=== PATIENT | female | born 1935 | race Caucasian/White ===

== ENCOUNTER 2021-01-29 18:27 | Inpatient (IN) | payer MEDICARE, OTHER ==
[~2021-01-29] VITALS: Ht 162.6 cm; Wt 74.0 kg
--- NOTE | 2021-01-29 18:50 | NUR ---
BIBRA 78 C/O R HIP PAIN S/P GLF WHILE WALKING HER DOG. PT AAOX4, VSS. RR EVEN & UNLABORED. DENIES CP, SOB, DIZZINESS, N/V AT THIS TIME. PT SEEN & EVAL'D BY DR. BANSAL. WILL CONT TO MONITOR.
[2021-01-29] MEDS ORDERED: MORPHINE SULFATE INJ 2 MG/ML DISP.SYRIN ONE (18:58)
[2021-01-29] MEDS ORDERED: ONDANSETRON HCL/PF 4 MG/2 ML VIAL ONE (18:58)
[2021-01-29] MEDS ORDERED: ONDANSETRON HCL/PF 4 MG/2 ML VIAL IVP ONE (19:00)
[2021-01-29] MEDS ORDERED: MORPHINE SULFATE INJ 2 MG/ML DISP.SYRIN IV ONE ×2 (19:00→20:30)
--- NOTE | 2021-01-29 19:02 | NUR ---
MEDICATED PER ERMD ORDER, PT CAROLINA WELL. WILL CONT TO MONITOR.
--- NOTE | 2021-01-29 19:08 | NUR ---
XRAY AT BEDSIDE
[2021-01-29 19:35] LABS: CALCIUM, SERUM 11.1 mg/dL (8.5-10.1); CARBON DIOXIDE 24 mmol/L (21-32); CHLORIDE 109 mmol/L (98-107); CREATININE 1.6 mg/dL (0.6-1.3); GLUCOSE 104 mg/dL (74-106); SODIUM SERUM 143 mmol/L (136-145); UREA NITROGEN, BLOOD 47 mg/dL (7-18)
[2021-01-29 19:52] LABS: BASOPHILS # (AUTO) 0.1 K/uL (0.0-0.2); BASOPHILS % (AUTO) 0.7 % (0.0-2.0); EOSINOPHILS % (AUTO) 1.7 % (0.0-6.0); HEMATOCRIT 41 % (33-45); HEMOGLOBIN 13.4 g/dL (11.5-14.8); LYMPHOCYTES # (AUTO) 2.2 K/uL (0.8-4.8); LYMPHOCYTES % (AUTO) 25.1 % (20.0-44.0); MEAN CORPUSCULAR HGB CONC 33 g/dl (31.0-36.0); MEAN CORPUSCULAR VOLUME 92 fL (82-100); MONOCYTES # (AUTO) 0.7 K/uL (0.1-1.30); MONOCYTES % (AUTO) 7.9 % (2.0-12.0); NEUTROPHILS # (AUTO) 5.7 K/uL (1.8-8.9); NEUTROPHILS % (AUTO) 64.6 % (43.0-81.0); PLATELET COUNT (AUTO) 182 K/uL (150-450); RED BLOOD CELL COUNT(AUTO) 4.44 MIL/uL (4.0-5.2); WHITE BLOOD COUNT (AUTO) 8.9 K/uL (4.3-11.0)
[2021-01-29] MEDS ORDERED: MORPHINE SULFATE INJ 4 MG/ML DISP.SYRIN ONE (20:06)
--- NOTE | 2021-01-29 20:15 | NUR ---
COVID SWAB SENT
[2021-01-29] MEDS ORDERED: IV D5W 1,000 ML IV PRN (20:30)
[2021-01-29] MEDS ORDERED: ONDANSETRON HCL/PF 4 MG/2 ML VIAL IVP PRN (20:30)
[2021-01-29] MEDS ORDERED: ZOLPIDEM TARTRATE 5 MG TABLET PO PRN (20:30)
[2021-01-29] MEDS ORDERED: MAGNESIUM HYDROXIDE 30 ML UDC PO PRN (20:30)
[2021-01-29] MEDS ORDERED: MAG HYDROX/AL HYDROX/SIMETH 30 ML UDC PO PRN (20:30)
[2021-01-29] MEDS ORDERED: Z GUARD REMEDY 2 OZ OINT TP PRN (20:30)
--- NOTE | 2021-01-29 21:30 | NUR ---
PT PLACED ON 2L O2 VIA NC FOR COMFORT
--- NOTE | 2021-01-29 23:41 | NUR ---
ms 308-1
--- NOTE | 2021-01-29 23:51 | NUR ---
GAVE REPORT TO SANDHYA FALK FOR ROSETTA
--- NOTE | 2021-01-30 00:01 | NUR ---
MS RN ADMITTING NOTES RECEIVED PATIENT VIA IGOR, VIRGIL, A&O X 4. IN NO ACUTE DISTRESS NOTED. TRANSFERRED TO BED SAFELY. VS TAKEN AND RECORDED FOLLOWS: TEMP 97.8, WY 86, RR 18, BP 139/62. WITH O2 VIA NC AT 2LPM SATURATING WELL AT 95%. WITH COMPLAINTS OF RIGHT HIP PAIN WITH PAIN SCALE OF 4/10. NOTED WITH REDNESS ON BLE, PICTURE TAKEN AND FILED IN CHART. SAFETY PRECAUTIONS OBSERVED: BED ON LOWEST LOCKED POSITION, SIDE RAILS UP X 2, CALL LIGHT WITHIN EASY REACH. INSTRUCTED TO USE CALL LIGHT WHEN ASSISTANCE IS NEEDED. INSTRUCTED ON NOTHING BY MOUTH AT THIS TIME. PATIENT VERBALIZED UNDERSTANDING. WILL CONTINUE TO MONITOR PATIENT'S CURRENT STATUS.
[2021-01-30 00:10] VITALS: BP 139/62
[2021-01-30 00:15] VITALS: BP 139/62
[2021-01-30] MEDS: MORPHINE SULFATE INJ 2 MG/ML DISP.SYRIN IV PRN ×3 (05:43→23:28)
--- NOTE | 2021-01-30 05:43 | NUR ---
RN NOTES PATIENT HAS C/O RIGHT HIP PAIN WITH PAIN SCALE OF 9/10. DUE MORPHINE GIVEN ORDERED. WILL CONTINUE TO MONITOR PATIENT'S PAIN STATUS.
[2021-01-30 05:50] LABS: BASOPHILS % (AUTO) 0.4 % (0.0-2.0); EOSINOPHILS % (AUTO) 1.5 % (0.0-6.0); HEMATOCRIT 38 % (33-45); HEMOGLOBIN 12.2 g/dL (11.5-14.8); LYMPHOCYTES # (AUTO) 1.9 K/uL (0.8-4.8); LYMPHOCYTES % (AUTO) 22.3 % (20.0-44.0); MEAN CORPUSCULAR HGB CONC 33 g/dl (31.0-36.0); MEAN CORPUSCULAR VOLUME 94 fL (82-100); MONOCYTES # (AUTO) 0.9 K/uL (0.1-1.30); NEUTROPHILS # (AUTO) 5.6 K/uL (1.8-8.9); NEUTROPHILS % (AUTO) 65.8 % (43.0-81.0); PLATELET COUNT (AUTO) 129 K/uL (150-450); RED BLOOD CELL COUNT(AUTO) 4.02 MIL/uL (4.0-5.2); WHITE BLOOD COUNT (AUTO) 8.5 K/uL (4.3-11.0)
--- NOTE | 2021-01-30 06:46 | NUR ---
MS RN CLOSING NOTES PATIENT IN BED, AWAKE, A&O X4, WITH O2 VIA NC AT 2LPM SATURATING WELL AT96%. ONGOING SHITAL OF D5 WATER 1LX 75CC/HR INFUSING WELL OVER PATIENT'S RIGHT WRIST, NO REDNESS, NO S/SX OF INFILTRATION NOTED. VS WNL. WITH FC CONNECTED TO URINE BAG DRAINING CLEAR YELLOW COLORED URINE. COMPLAINTS OF TOLERABLE PAIN ON RIGHT HIP WITH PAIN SCALE OF 3/10. REINFORCED NPO. SAFETY PRECAUTIONS OBSERVED AND MAINTAINED DURING THE SHIFT: BED ON LOWEST LOCKED POSITION, KEPT SIDE RAILS UPX2 AT ALL TIMES, KEPT CALL LIGHT WITHIN EASY REACH. WILL ENDORSE TO AM SHIFT NURSE FOR ROSETTA.
--- NOTE | 2021-01-30 07:14 | NUR ---
MS RN OPENING NOTES PATIENT IN BED, AWAKE, A&O X4, NO C/O PAIN OR DISTRESS. WITH O2 VIA NC 2LPM SATURATING 96%, NO SOB NOTED. JAN PICC LINE, INTACT, PATENT AND FLUSHES WELL. NO REDNESS NOTED. VS WNL WITH BLE DRESSING DRY AND INTACT. WOUND VACC ON R LOWER LEG AT 125 MMHG DRAINING SEROSANGUINEOUS SECRETIONS. NO COMPLAINTS OF NAUSEA/VOMITING AT THIS TIME. SAFETY PRECAUTIONS OBSERVED AND MAINTAINED DURING THE SHIFT: BED ON LOWEST LOCKED POSITION, KEPT SIDE RAILS UPX2 AT ALL TIMES, KEPT CALL LIGHT WITHIN EASY REACH AND ANSWERED PROMPTLY
[2021-01-30 07:48] LABS: THYROID STIMULATING HORMONE 1.717 uIU/mL (0.358-3.74)
[2021-01-30] MEDS ORDERED: METO25TA4 PO (07:56)
[2021-01-30] MEDS ORDERED: ATOR10TA PO (07:56)
[2021-01-30] MEDS ORDERED: CHOL100062 PO (07:56)
[2021-01-30] MEDS ORDERED: VITA-354 PO (07:56)
[2021-01-30] MEDS ORDERED: MULT-447 PO (07:56)
[2021-01-30] MEDS ORDERED: OMEG1CAP PO (07:56)
[2021-01-30] MEDS ORDERED: THIA100T70 PO (07:56)
[2021-01-30] MEDS ORDERED: VALS1TAB7 PO (07:56)
[2021-01-30 08:03] LABS: CALCIUM, SERUM 10.5 mg/dL (8.5-10.1); CREATININE 1.3 mg/dL (0.6-1.3); MAGNESIUM 1.6 mg/dL (1.8-2.4); PHOSPHORUS 2.9 mg/dL (2.5-4.9); POTASSIUM 4.4 mmol/L (3.5-5.1)
[2021-01-30] MEDS ORDERED: PANTOPRAZOLE 40 MG VIAL IV SCH (09:00)
[2021-01-30] MEDS ORDERED: HYDROCHLOROTHIAZIDE 25 MG TABLET PO SCH (09:00)
[2021-01-30] MEDS ORDERED: Medication Not On Formulary EA (Omega-3 Fatty Acids/Fish Oil (Fish Oil 1,000 Mg Capsule) PO SCH (09:00)
[2021-01-30] MEDS ORDERED: Magnesium 1GM/D5W 100ML PREMIX PIGGYBACK IV ONE (09:30)
[2021-01-30] MEDS: THIAMINE HCL 100 MG TABLET PO SCH (09:32)
[2021-01-30] MEDS: ATORVASTATIN 10 MG TABLET PO SCH (09:32)
[2021-01-30] MEDS: CHOLECALCIFEROL 1,000 UNIT TABLET (VIT D3) PO SCH (09:33)
[2021-01-30] MEDS: METOPROLOL SUCCINATE 25 MG TAB.SR.24H PO SCH (09:34)
[2021-01-30] MEDS: VITAMIN E 400 UNIT CAPSULE PO SCH (09:34)
[2021-01-30] MEDS: MULTIVIT W/MINERALS 1 TAB TABLET PO SCH (09:34)
[2021-01-30] MEDS: VALSARTAN 80 MG TABLET PO SCH (09:35)
[2021-01-30] MEDS: ENOXAPARIN SODIUM 40 MG/0.4 ML DISP.SYRIN SQ SCH (10:24)
[2021-01-30] MEDS ORDERED: METOPROLOL TARTRATE 25 MG TABLET PO SCH (10:30)
[2021-01-30] MEDS: PANTOPRAZOLE 40 MG TABLET.DR PO SCH (11:02)
[2021-01-30 11:15] LABS: ALBUMIN 3.1 g/dL (3.4-5.0); BILIRUBIN,DIRECT 0.3 mg/dL (0.0-0.2); BILIRUBIN,TOTAL 1.1 mg/dL (0.2-1.0); TOTAL PROTEIN, SERUM 5.8 g/dL (6.4-8.2)
[2021-01-30] MEDS: ACETAMINOPHEN 325 MG TABLET PO PRN (14:10)
[2021-01-30] MEDS: HYDROCODONE/APAP 5/325MG TABLET PO PRN ×2 (14:38→19:16)
--- NOTE | 2021-01-30 18:58 | NUR ---
PT IN BED AOX4, BREATHING EVEN AND UNLABORED , NO C/O OF RESPIRATORY DISTRESS, R WRIST 20 G IV , INTACT PATENT AND FLUSHING , PT DUE FOR R HIP ORIF TOMORROW AT 4PM DONE BY DR BAEZA. PT WILL BE ON MIDNIGHT NPO FOR PROCEDURE TOMORROW. SAFETY PRECAUTIONS INPLEMENTED , BED LOWEST POSITION , S8DE RAILS UP TIMES 2 AND BED LOCKED. CALL LIGHT WITHIN REACH AND ANSWERED PROMPTLY.
--- NOTE | 2021-01-30 19:20 | NUR ---
MS RN OPENING NOTE: RECEIVED PATIENT AWAKE IN BED,A/OX4, OB BED REST, ASPIRATION PRECAUTION, ON STAPLETON CATH WITH 50CC URINE RETENTION CLEAR YELLOW, IV LINE AT R WRIST WITH D5W @75ML/HR INFUSING WELL,ON BED REST, NPO POST MIDNIGHT DUE TO SCHEDULE R HIP ORIF AT 1600 PATIENT KEPT CLEAN AND DRY, ALL NEEDS MET, WILL CONTINUE TO MONITOR.
[2021-01-30 20:00] VITALS: BP 90/62
[2021-01-30] MEDS: IV NS 0.9% 1,000 ML IV PRN (20:29)
[2021-01-31] VITALS (9 sets, daily range): BP systolic 90–119; BP diastolic 46–74
[2021-01-31] MEDS ORDERED: Potassium Chloride 20 MEQ in IV D5/0.45 NACL 1,000 ML IV PRN
[2021-01-31 05:59] LABS: BASOPHILS % (AUTO) 0.6 % (0.0-2.0); EOSINOPHILS % (AUTO) 2.3 % (0.0-6.0); HEMATOCRIT 38 % (33-45); HEMOGLOBIN 12.5 g/dL (11.5-14.8); LYMPHOCYTES # (AUTO) 1.3 K/uL (0.8-4.8); LYMPHOCYTES % (AUTO) 18.3 % (20.0-44.0); MEAN CORPUSCULAR HGB CONC 33 g/dl (31.0-36.0); MEAN CORPUSCULAR VOLUME 93 fL (82-100); MONOCYTES # (AUTO) 0.7 K/uL (0.1-1.30); MONOCYTES % (AUTO) 9.9 % (2.0-12.0); NEUTROPHILS % (AUTO) 68.9 % (43.0-81.0); PLATELET COUNT (AUTO) 122 K/uL (150-450); RED BLOOD CELL COUNT(AUTO) 4.12 MIL/uL (4.0-5.2); WHITE BLOOD COUNT (AUTO) 7.2 K/uL (4.3-11.0)
[2021-01-31] MEDS ORDERED: CEFAZOLIN 2 GM in IV D5W 100 ML IV ONE (06:30)
[2021-01-31 06:37] LABS: ALANINE AMINOTRANSFERASE 23 U/L (12-78); ALBUMIN 2.9 g/dL (3.4-5.0); ALKALINE PHOSPHATASE 58 U/L (46-116); ASPARTATE AMINOTRANSFERASE 17 U/L (15-37); BILIRUBIN,TOTAL 1.8 mg/dL (0.2-1.0); CALCIUM, SERUM 10.4 mg/dL (8.5-10.1); CARBON DIOXIDE 23 mmol/L (21-32); CHLORIDE 104 mmol/L (98-107); CREATININE 1.2 mg/dL (0.6-1.3); GLUCOSE 152 mg/dL (74-106); MAGNESIUM 1.6 mg/dL (1.8-2.4); PHOSPHORUS 2.7 mg/dL (2.5-4.9); POTASSIUM 4.5 mmol/L (3.5-5.1); SODIUM SERUM 136 mmol/L (136-145); TOTAL PROTEIN, SERUM 5.6 g/dL (6.4-8.2); UREA NITROGEN, BLOOD 27 mg/dL (7-18)
--- NOTE | 2021-01-31 06:54 | NUR ---
MS RN CLOSING NOTE: PATIENT SLEEP IN BED COMFORTABLY,AROUSABLE TO STIMULI, BED IN LOW POSITION, CALLLIGHTS WITHIN REACH, NO COMPLAIN OF PAIN AND DISCOMFORT AT THIS TIME, BED IN LOW POSITION, CALL LIGHTS WITHIN REACH PATIENT ON NPO WITH SHEDULE R HIP ORIF AT 1600 TODAY, WITH IV LINE AT R WRIST WITH POTASSIUM CHLORIDE 20 MEQ ON D5 1/2 NSS @100ML/HR INFUSING WELL, PATIENT KEPT CLEAN AND DRY, ALL NEEDS MET, ENDORSE TO INCOMING SHIFT.
--- NOTE | 2021-01-31 07:36 | NUR ---
MS RN OPENING NOTES RECEIVED PATIENT IN BED, AWAKE, A/O X4. PATIENT ON OXYGEN THERAPY AT 2 LPM FOR COMFORT PER PATIENT REQUEST. COMPLAINING OF MILD PAIN IN HER HIP. STAPLETON CATH IN PLACE DRAINING YELLOW URINE. R WRIST IV ACCESS G #[address] AND INTACT INFUSING POTASSIUM CHLORIDE 20 MEQ IN D5 1/2 NS 100 MLS/HR. SAFETY PRECAUTIONS IN PLACE; BED IN LOW POSITION AND LOCKED, RAILS UP X2, CALL LIGHT WITHIN REACH. WILL CONTINUE TO MONITOR PATIENT.
[2021-01-31] MEDS ORDERED: Magnesium 1GM/D5W 100ML PREMIX PIGGYBACK IV ONE (08:00)
[2021-01-31] MEDS ORDERED: LORAZEPAM INJ 2 MG/ML VIAL IV PRN (08:00)
[2021-01-31] MEDS: MORPHINE SULFATE INJ 2 MG/ML DISP.SYRIN IV PRN ×2 (08:03→12:45)
--- NOTE | 2021-01-31 08:08 | NUR ---
MS RN NOTES PATIENT COMPLAINING OF HIP PAIN 8 OUT OF 10 REQUESTING PAIN MEDICATION. PRN MORPHINE 4 MG ADMINISTERED PER MD ORDER. WILL REASSESS.
[2021-01-31] MEDS: VITAMIN E 400 UNIT CAPSULE PO SCH (08:10)
[2021-01-31] MEDS: CHOLECALCIFEROL 1,000 UNIT TABLET (VIT D3) PO SCH (08:10)
[2021-01-31] MEDS: MULTIVIT W/MINERALS 1 TAB TABLET PO SCH (08:10)
[2021-01-31] MEDS: METOPROLOL SUCCINATE 25 MG TAB.SR.24H PO SCH (08:10)
[2021-01-31] MEDS: VALSARTAN 80 MG TABLET PO SCH (08:10)
[2021-01-31] MEDS: THIAMINE HCL 100 MG TABLET PO SCH (08:10)
[2021-01-31] MEDS: PANTOPRAZOLE 40 MG TABLET.DR PO SCH (08:10)
[2021-01-31] MEDS: ATORVASTATIN 10 MG TABLET PO SCH (08:10)
[2021-01-31] MEDS: ENOXAPARIN SODIUM 40 MG/0.4 ML DISP.SYRIN SQ SCH (09:17)
[2021-01-31] MEDS ORDERED: ANESTHESIA TRAY IN PYXIS 1 EA TRAY MC ONE (12:08)
[2021-01-31] MEDS ORDERED: BUPIVACAINE 0.5 % PF 150 MG/30 ML VIAL ONE (12:09)
--- NOTE | 2021-01-31 12:49 | NUR ---
MS RN NOTES PATIENT COMPLAINING OF HIP PAIN 9 OUT OF 10 REQUESTING PAIN MEDICATION. PRN MORPHINE 4 MG ADMINISTERED PER MD ORDER. WILL REASSESS.
[2021-01-31] MEDS: IV NS 0.9% 1,000 ML IV PRN ×2 (13:21→20:47)
--- NOTE | 2021-01-31 15:46 | NUR ---
MS RN NOTES PATIENT TAKEN TO SURGERY.
[2021-01-31] MEDS ORDERED: MIDAZOLAM HCL 2 MG/2ML VIAL ONE (15:47)
[2021-01-31] MEDS ORDERED: FENTANYL PF 250MCG/5ML AMPUL ONE (15:47)
[2021-01-31] MEDS ORDERED: VANCOMYCIN 1 GM VIAL ONE (15:55)
[2021-01-31] MEDS ORDERED: TRANEXAMIC ACID 1,000 MG in SODIUM CHLORIDE IRRIG SOLUTION 90 ML IR ONE (17:00)
[2021-01-31] MEDS ORDERED: VANCOMYCIN 1 GM in IV NS 0.9% 250 ML IV ONE (17:00)
[2021-01-31] MEDS ORDERED: BUPIVACAINE MPF 0.5% W/EPI INJ 30 ML VIAL ONE (17:01)
[2021-01-31] MEDS ORDERED: BUPIVACAINE MPF W/EPI 0.25% 30 ML VIAL ONE (17:01)
[2021-01-31] MEDS ORDERED: HYDROMORPHONE INJ 2 MG/ML DISP.SYRIN ONE (18:47)
--- NOTE | 2021-01-31 19:30 | NUR ---
MS RN OPENING NOTE RECEIVED PT IN BED WITH EYES CLOSED, EASILY AROUSED. A/O X4. S/P RIGHT HIP SURGERY. PT ON 2L O2 VIA NC. NO SOB OR S/S OF RESPIRATORY DISTRESS NOTED. PT C/O ACHING AND BURNING PAIN IN RIGHT HIP, RATED 8/10 ON 0-10 PAIN SCALE. WILL ADMINISTER PAIN MEDICATION. STAPLETON CATH IN PLACE DRAINING CLEAR YELLOW URINE. IV ACCESS IN RIGHT WRIST #20, INTACT AND PATENT. SAFETY MEASURES MAINTAINED. BED IN LOWEST LOCKED POSITION, HOB ELEVATED, SIDE RAILS UP X2. CALL LIGHT AND TABLE WITHIN REACH. WILL CONTINUE WITH PLAN OF CARE.
[2021-01-31] MEDS: TRAMADOL HCL 50 MG TABLET PO SCH (20:34)
[2021-02-01] MEDS: CEFAZOLIN 2 GM in IV D5W 100 ML IV SCH ×3 (00:16→16:40)
[2021-02-01] MEDS: TRAMADOL HCL 50 MG TABLET PO SCH ×3 (02:37→14:00)
[2021-02-01 02:45] VITALS: BP 123/69
[2021-02-01] MEDS: MORPHINE SULFATE INJ 2 MG/ML DISP.SYRIN IV PRN ×2 (04:59→18:26)
--- NOTE | 2021-02-01 04:59 | NUR ---
RN PAIN PT C/O SHARP PAIN IN THE RIGHT HIP, RATED 8/10 ON 0-10 PAIN SCALE. PT NOTED WITH FACIAL GRIMACING AND IRRITABILITY. VSS. PER PT REQUEST, ADMINISTERED MORPHINE SULFATE 4 MG IV Q4H PRN FOR PAIN. WILL CONTINUE TO MONITOR.
--- NOTE | 2021-02-01 05:30 | NUR ---
INCENTIVE SPIROMETER AT BEDSIDE. DEMONSTRATED USE EVERY 4 HOURS WHILE AWAKE AFTER SURGERY AND EDUCATED PT ON BENEFITS OF INCENTIVE SPIROMETER. PT VERBALIZED UNDERSTANDING.
[2021-02-01 06:31] LABS: BASOPHILS % (AUTO) 0.3 % (0.0-2.0); EOSINOPHILS % (AUTO) 0.1 % (0.0-6.0); HEMATOCRIT 34 % (33-45); HEMOGLOBIN 11.2 g/dL (11.5-14.8); LYMPHOCYTES # (AUTO) 0.5 K/uL (0.8-4.8); LYMPHOCYTES % (AUTO) 3.5 % (20.0-44.0); MEAN CORPUSCULAR HGB CONC 33 g/dl (31.0-36.0); MEAN CORPUSCULAR VOLUME 93 fL (82-100); MONOCYTES # (AUTO) 0.7 K/uL (0.1-1.30); MONOCYTES % (AUTO) 4.6 % (2.0-12.0); NEUTROPHILS # (AUTO) 13.6 K/uL (1.8-8.9); NEUTROPHILS % (AUTO) 91.5 % (43.0-81.0); PLATELET COUNT (AUTO) 118 K/uL (150-450); RED BLOOD CELL COUNT(AUTO) 3.71 MIL/uL (4.0-5.2); WHITE BLOOD COUNT (AUTO) 14.9 K/uL (4.3-11.0)
[2021-02-01 06:43] LABS: CALCIUM, SERUM 9.7 mg/dL (8.5-10.1); CARBON DIOXIDE 23 mmol/L (21-32); CHLORIDE 108 mmol/L (98-107); CREATININE 1.4 mg/dL (0.6-1.3); GLUCOSE 177 mg/dL (74-106); MAGNESIUM 1.5 mg/dL (1.8-2.4); POTASSIUM 4.7 mmol/L (3.5-5.1); SODIUM SERUM 138 mmol/L (136-145); UREA NITROGEN, BLOOD 27 mg/dL (7-18)
--- NOTE | 2021-02-01 07:00 | NUR ---
MS RN CLOSING NOTE PT IS AWAKE IN BED. A/O X4. PT ON 2L O2 VIA NC. NO SOB OR S/S OF RESPIRATORY DISTRESS NOTED. PT ON BEDREST. PT HAS NO C/O PAIN OR DISCOMFORT AT THIS TIME. STAPLETON CATH IN PLACE DRAINING CLEAR YELLOW URINE. IV ACCESS IS INTACT, PATENT, AND FLUSHING WELL. DRESSING NOTED ON RIGHT HIP, DRY AND NO BLEEDING NOTED. ALL NEEDS HAVE BEEN MET. PAIN MANAGEMENT ADMINISTERED PER ORDER. SAFETY PRECAUTIONS MAINTAINED AT ALL TIMES. BED IN LOWEST LOCKED POSITION, HOB ELEVATED, SIDE RAILS UP X2. CALL LIGHT AND TABLE WITHIN REACH. WILL ENDORSE TO ONCOMING NURSE FOR ROSETTA.
[2021-02-01 08:00] VITALS: BP 115/56
[2021-02-01] MEDS: Magnesium 1GM/D5W 100ML PREMIX 100 ML IV SCH ×3 (08:30→11:09)
[2021-02-01] MEDS: METOPROLOL SUCCINATE 25 MG TAB.SR.24H PO SCH (09:00)
[2021-02-01] MEDS: MULTIVIT W/MINERALS 1 TAB TABLET PO SCH (09:15)
[2021-02-01] MEDS: VALSARTAN 80 MG TABLET PO SCH (09:16)
[2021-02-01] MEDS: ATORVASTATIN 10 MG TABLET PO SCH (09:16)
[2021-02-01] MEDS: THIAMINE HCL 100 MG TABLET PO SCH (09:16)
[2021-02-01] MEDS: PANTOPRAZOLE 40 MG TABLET.DR PO SCH (09:16)
[2021-02-01] MEDS: VITAMIN E 400 UNIT CAPSULE PO SCH (09:16)
[2021-02-01] MEDS: ENOXAPARIN SODIUM 30 MG/0.3 ML DISP.SYRIN SQ SCH (09:18)
--- NOTE | 2021-02-01 14:03 | NUR ---
PATIENT IS HAVING HALLUCINATIONS - DID NOT GIVE 1400 TRAMADOL
[2021-02-01] MEDS ORDERED: TRAMADOL HCL 50 MG TABLET PO PRN (14:30)
[2021-02-01 16:00] VITALS: BP 106/55
--- NOTE | 2021-02-01 18:00 | NUR ---
MS RN NOTE PATIENT REQUESTED TO NOT HAVE STAPLETON TAKEN OUT UNTIL TOMORROW AFTER PT. STATED SHE CANNOT WALK AND IS IN TOO MUCH PAIN TO GET OUT OF BED SO SHE WILL URINATE ON HERSELF. DAUGHTER IS ADAMANT ABOUT LEAVING IT IN WELL. I LET THEM KNOW THAT WE DO NOT WANT HER TO GET AN INFECTION AND THAT IT SHOULD BE TAKEN OUT DAY 1 POST OP. PATIENT STILL WANTS IT IN. MD AWARE. I LET PATIENT KNOW WE WILL WAIT UNTIL TOMORROW MORNING.
--- NOTE | 2021-02-01 18:36 | NUR ---
MS RN CLOSING NOTE PATIENT CURRENTLY LYING IN BED, AWAKE. A/O X4. STABLE ON ROOM AIR - NO SOB OR DISCOMFORT NOTED. COMPLAINING OF PAIN 05/15 - ADMINISTERED MORPHINE 4MG IV @ 1830. IV ACCESS TO RIGHT WRIST #20 - HEP LOCK. STAPLETON CATH IN PLACE DRAINING CLEAR YELLOW URINE TO GRAVITY. STAPLETON WAS SUPPOSED TO BE TAKEN OUT TODAY, PATIENT REQUESTED THAT IT BE LEFT IN BECAUSE SHE CANNOT WALK AND WILL URINATE ON HERSELF. MD AWARE. DRESSING CHANGED ON RIGHT HIP TO BORDER DRESSING - TO BE CHANGED PRN SOILING USING ASEPTIC TECHNIQUE. SAFETY PRECAUTIONS MAINTAINED. CALL LIGHT WITHIN REACH. WILL ENDORSE TO [place]ION COORDINATOR FOR ROSETTA.
[2021-02-01 20:00] VITALS: BP 104/42
--- NOTE | 2021-02-01 20:00 | NUR ---
MS RN OPENING NOTES Patient is A&Ox3, in no distress. Denies pain or discomfort. O2 sat was 89% on RA, reapplied NC on 2L and O2 went up to 93%, denies SOB. Mitchell patent and draining. All safety measures in place. Patient is calm and cooperative.
--- NOTE | 2021-02-02 05:04 | NUR ---
MS RN NOTES Patient is A&Ox3. VSS. O2 92-95% on O2 2L via NC. Denies pain at rest, states she is very comfortable and able to rest well throughout the night but easy to rouse. Upon repositioning patient does state pain about 6/10 but goes away once in new position. Precautions when repositioning d/t s/p hip replacement. No signs of distress
[2021-02-02 05:07] LABS: PTH, INTACT 92 pg/mL (15-65)
[2021-02-02] MEDS: HYDROCODONE/APAP 5/325MG TABLET PO PRN ×2 (06:11→21:35)
[2021-02-02 06:26] LABS: BASOPHILS % (AUTO) 0.3 % (0.0-2.0); EOSINOPHILS % (AUTO) 2.2 % (0.0-6.0); HEMATOCRIT 33 % (33-45); HEMOGLOBIN 10.7 g/dL (11.5-14.8); LYMPHOCYTES % (AUTO) 9.6 % (20.0-44.0); MEAN CORPUSCULAR HGB CONC 33 g/dl (31.0-36.0); MEAN CORPUSCULAR VOLUME 93 fL (82-100); MONOCYTES # (AUTO) 0.9 K/uL (0.1-1.30); MONOCYTES % (AUTO) 9.3 % (2.0-12.0); NEUTROPHILS # (AUTO) 7.8 K/uL (1.8-8.9); NEUTROPHILS % (AUTO) 78.6 % (43.0-81.0); PLATELET COUNT (AUTO) 108 K/uL (150-450)
[2021-02-02 06:36] LABS: CALCIUM, SERUM 10.3 mg/dL (8.5-10.1); CARBON DIOXIDE 24 mmol/L (21-32); CHLORIDE 104 mmol/L (98-107); CREATININE 1.4 mg/dL (0.6-1.3); GLUCOSE 149 mg/dL (74-106); MAGNESIUM 2.4 mg/dL (1.8-2.4); POTASSIUM 4.6 mmol/L (3.5-5.1); SODIUM SERUM 133 mmol/L (136-145); UREA NITROGEN, BLOOD 31 mg/dL (7-18)
--- NOTE | 2021-02-02 07:21 | NUR ---
MS RN OPENING NOTE PATIENT CURRENTLY LYING IN BED, AWAKE. A/O X4. STABLE ON ROOM AIR - NO SOB OR DISCOMFORT NOTED. IV ACCESS TO RIGHT WRIST #20 - HEP LOCK. STAPLETON CATH IN PLACE DRAINING CLEAR YELLOW URINE TO GRAVITY. STAPLETON WAS SUPPOSED TO BE TAKEN OUT TODAY, PATIENT REQUESTED THAT IT BE LEFT IN BECAUSE SHE CANNOT WALK AND WILL URINATE ON HERSELF. MD AWARE. DRESSING CHANGED ON RIGHT HIP TO BORDER DRESSING - TO BE CHANGED PRN SOILING USING ASEPTIC TECHNIQUE. SAFETY PRECAUTIONS MAINTAINED. CALL LIGHT WITHIN REACH AND ANSWERED PROMPTLY
[2021-02-02 08:00] VITALS: BP 100/54
[2021-02-02] MEDS: THIAMINE HCL 100 MG TABLET PO SCH (08:02)
[2021-02-02] MEDS: ATORVASTATIN 10 MG TABLET PO SCH (08:03)
[2021-02-02] MEDS: PANTOPRAZOLE 40 MG TABLET.DR PO SCH (08:03)
[2021-02-02] MEDS: VITAMIN E 400 UNIT CAPSULE PO SCH (08:03)
[2021-02-02] MEDS: MULTIVIT W/MINERALS 1 TAB TABLET PO SCH (08:03)
[2021-02-02 08:06] LABS: IMMUNOGLOBULIN A, SERUM 68 mg/dL (64-422); IMMUNOGLOBULIN G, SERUM 355 mg/dL (586-1602); IMMUNOGLOBULIN M, SERUM 25 mg/dL (26-217)
[2021-02-02] MEDS: ENOXAPARIN SODIUM 30 MG/0.3 ML DISP.SYRIN SQ SCH (08:06)
[2021-02-02] MEDS: METOPROLOL SUCCINATE 25 MG TAB.SR.24H PO SCH (08:10)
[2021-02-02] MEDS: MORPHINE SULFATE INJ 2 MG/ML DISP.SYRIN IV PRN (08:42)
[2021-02-02 15:07] LABS: *SPE A/G RATIO 1.1 (0.7-1.7); *SPE ALBUMIN 2.5 g/dL (2.9-4.4); *SPE ALPHA-1-GLOBULIN 0.4 g/dL (0.0-0.4); *SPE ALPHA-2-GLOBULIN 0.8 g/dL (0.4-1.0); *SPE BETA GLOBULIN 0.7 g/dL (0.7-1.3); *SPE GLOBULIN, TOTAL 2.2 g/dL (2.2-3.9); *SPE M-SPIKE Not Observed g/dL (Not Observed); *SPEGAMMA GLOBULIN 0.3 g/dL (0.4-1.8)
[2021-02-02] MEDS: ENSURE ENLIVE 237 ML LIQUID (VANILLA) PO SCH (16:15)
--- NOTE | 2021-02-02 18:31 | NUR ---
MS RN CLOSING NOTE PATIENT CURRENTLY LYING IN BED, AWAKE. A/O X4. STABLE ON ROOM AIR - NO SOB OR DISCOMFORT NOTED. IV ACCESS TO RIGHT WRIST #20 - HEP LOCK. STAPLETON CATH IN PLACE DRAINING CLEAR YELLOW URINE TO GRAVITY. STAPLETON WAS SUPPOSED TO BE TAKEN OUT TODAY, PATIENT REQUESTED THAT IT BE LEFT IN BECAUSE SHE CANNOT WALK AND WILL URINATE ON HERSELF. MD AWARE. DRESSING - TO BE CHANGED PRN SOILING USING ASEPTIC TECHNIQUE. SAFETY PRECAUTIONS MAINTAINED. CALL LIGHT WITHIN REACH AND ANSWERED PROMPTLY
--- NOTE | 2021-02-02 19:14 | NUR ---
RN Opening Notes Patient was last seen sleeping in bed. Patient's alert and oriented x3-4. Patient's on room air with no respiratory distress noted. Patient has an IV access on her right wrist gauge#20, which is intact and patent. Patient is not in any acute distress at this time. Safety measures in place: Bed locked, bed alarm on, side rails up x3, and call light within reach. Will continue to monitor the patient.
[2021-02-02 20:00] VITALS: BP 113/59
--- NOTE | 2021-02-02 21:35 | NUR ---
RN Notes Patient c/o 7/10 pain. Patient was given 1 tablet of [place] (5/325mg) by mouth. Will continue to monitor the patient.
[2021-02-03 06:03] LABS: CALCIUM, SERUM 10.9 mg/dL (8.5-10.1); CREATININE 1.3 mg/dL (0.6-1.3); POTASSIUM 4.5 mmol/L (3.5-5.1)
[2021-02-03 06:14] LABS: BASOPHILS % (AUTO) 0.4 % (0.0-2.0); EOSINOPHILS % (AUTO) 2.8 % (0.0-6.0); HEMATOCRIT 29 % (33-45); HEMOGLOBIN 9.7 g/dL (11.5-14.8); LYMPHOCYTES # (AUTO) 1.1 K/uL (0.8-4.8); LYMPHOCYTES % (AUTO) 12.8 % (20.0-44.0); MEAN CORPUSCULAR HGB CONC 33 g/dl (31.0-36.0); MEAN CORPUSCULAR VOLUME 93 fL (82-100); MONOCYTES % (AUTO) 11.2 % (2.0-12.0); NEUTROPHILS # (AUTO) 6.4 K/uL (1.8-8.9); NEUTROPHILS % (AUTO) 72.8 % (43.0-81.0); PLATELET COUNT (AUTO) 120 K/uL (150-450); RED BLOOD CELL COUNT(AUTO) 3.17 MIL/uL (4.0-5.2); WHITE BLOOD COUNT (AUTO) 8.8 K/uL (4.3-11.0)
--- NOTE | 2021-02-03 07:02 | NUR ---
RN Closing Notes Patient was last seen sleeping in bed. Patient's alert and oriented x3-4. Patient's on room air with no respiratory distress noted. Patient has a saline lock on her right wrist gauge#20, which is intact and patent. Patient is not in any acute distress at this time. Safety measures in place: Bed locked, bed alarm on, side rails up x3, and call light within reach. Will endorse care to the day shift nurse.
[2021-02-03] MEDS ORDERED: ENOX30DI SQ (07:41)
--- NOTE | 2021-02-03 07:46 | NUR ---
MS/RN OPENING NOTE RECEIVED PATIENT IN BED, AWAKE. A/O X4. STABLE ON ROOM AIR - NO SOB OR DISCOMFORT NOTED. IV ACCESS TO RIGHT WRIST #20 - SALINE LOCK. STAPLETON CATH IN PLACE DRAINING CLEAR YELLOW URINE TO GRAVITY. SAFETY PRECAUTIONS MAINTAINED. BED ON LOWEST LOCKED POSITION. CALL LIGHT WITHIN REACH. WILL CONTINUE TO MONITOR.
[2021-02-03] MEDS: PANTOPRAZOLE 40 MG TABLET.DR PO SCH (08:41)
[2021-02-03] MEDS: ATORVASTATIN 10 MG TABLET PO SCH (08:41)
[2021-02-03] MEDS: VITAMIN E 400 UNIT CAPSULE PO SCH (08:41)
[2021-02-03] MEDS: MULTIVIT W/MINERALS 1 TAB TABLET PO SCH (08:41)
[2021-02-03 08:42] VITALS: BP 142/58
[2021-02-03] MEDS: METOPROLOL SUCCINATE 25 MG TAB.SR.24H PO SCH (08:42)
[2021-02-03] MEDS: ENSURE ENLIVE 237 ML LIQUID (VANILLA) PO SCH ×2 (08:42→12:18)
[2021-02-03] MEDS: THIAMINE HCL 100 MG TABLET PO SCH (08:42)
[2021-02-03] MEDS ORDERED: ENOXAPARIN SODIUM 30 MG/0.3 ML DISP.SYRIN SQ SCH (09:00)
[2021-02-03] MEDS: ACETAMINOPHEN 325 MG TABLET PO PRN (10:57)
--- NOTE | 2021-02-03 10:57 | NUR ---
MS/RN NOTES PATIENT COMPLAINED BACK PAIN RATED 3. PATIENT REQUESTED TYLENOL 325MG 2 TAB P.O. AND WAS GIVEN. WILL CONTINUE TO MONITOR.
--- NOTE | 2021-02-03 13:17 | NUR ---
MS/RN NOTES DR. PALMER (SURGEON) CAME TO SEE PATIENT AND CHANGED DRESSING ON RIGHT SIDE HIP SURGERY SITE TODAY. SITE HAS JEFFREY ON IT. NO S/S OF INFECTION NOTED. MD AWARE THAT PATIENT WILL BE TRANSFERRED TO [facility] TODAY.
--- NOTE | 2021-02-03 17:00 | NUR ---
MS/RN NOTES PATIENT IS MEDICALLY STABLE AND DR. SINGER ORDERED [facility]CHARGE TRANSF[facility] TO [facility] FOR [facility]. PATIENT IS ALERT ORIENTED X4, ABLE TO MAKE NEEDS KNOWN. ON ROOM AIR. DISCHARGE PAPERS EXPLAINED TO THE PATIENT AND PATIENT VERBALIZED UNDERSTANDING. ALL BELONGINGS ACCOUNTED FOR. NON-EMERGENCY TRANSPORTATION CAME AND PICKED UP PATIENT. DAUGHTER AT BEDSIDE. STAPLETON CATHETER IN PLACED AND PATIENT REQUESTED STAPLETON TO REMAIN. CALLED IN ENDORSEMENTS TO KATE (RN, [facility]).
== END 2021-02-03 17:00 | DRG 480 ==
LOC: ER 18:32 → MED 23:47
PROVIDERS: ADMIT Student in an Organized Health Care Education/Training Program; ATTEND Family Medicine
PROC: 0QS606Z Reposition Right Upper Femur with Intramedullary Internal Fixation Device, Open Approach (ICD-10-PCS; principal; 2021-01-31)
DX: S72.21XA Displaced subtrochanteric fracture of right femur, initial encounter for closed fracture (principal); N17.0 Acute kidney failure with tubular necrosis; W01.0XXA Fall on same level from slipping, tripping and stumbling without subsequent striking against object, initial encounter; Y93.K1 Activity, walking an animal; Y92.480 Sidewalk as the place of occurrence of the external cause; I12.9 Hypertensive chronic kidney disease with stage 1 through stage 4 chronic kidney disease, or unspecified chronic kidney disease; N18.9 Chronic kidney disease, unspecified; E83.42 Hypomagnesemia; Z20.822 Contact with and (suspected) exposure to COVID-19; E78.5 Hyperlipidemia, unspecified; D72.829 Elevated white blood cell count, unspecified; M16.11 Unilateral primary osteoarthritis, right hip; E86.1 Hypovolemia; E83.52 Hypercalcemia
CPT/HCPCS: 36415; 71045-TC; 72170-TC; 73501; 73502; 73560-TC; 80048-TC; 80053-TC; 80061-TC; 80076-TC; 82784; 83735-TC; 83970; 84100-TC; 84155; 84165; 84439-TC; 84443-TC; 84484-TC; 85025-TC; 85730-TC; 86334; 86850-TC; 87081-TC; 93307-TC; 97110-TC; 97112-TC; 97530-TC; A6209; A6253; A6403; C1713; C9113; C9803; G0378; J0690; J1170; J1650; J2250; J2270; J2405; J2704; J2765; J3010; J3370; J3475; J3480; J3490; J7030; J7050; J7060; J7070

== ENCOUNTER 2021-04-08 12:18 | Inpatient (IN) | payer MEDICARE, OTHER ==
[~2021-04-08] VITALS: Ht 162.6 cm; Wt 75.7 kg
[~2021-04-08 12:18] MED LIST: ATOR10TA PO; CHOL100062 PO; ENOX30DI SQ; METO25TA4 PO; MULT-447 PO; OMEG1CAP PO; THIA100T70 PO; VALS1TAB7 PO; VITA-354 PO
--- NOTE | 2021-04-08 12:33 | NUR ---
TO ER BED 7, NAGI PARRA FROM SNF, SENT BY PMD FOR ABNORMAL CXR SHOWS PNEUMONIA & WBC 22.0, BREATHING EVEN AND UNLABORED, NO SIGNS OF DISTRESS
[2021-04-08] MEDS ORDERED: AZITHROMYCIN 500 MG in IV D5W 250 ML IV ONE (13:00)
[2021-04-08] MEDS ORDERED: CEFTRIAXONE 1 G in IV D5W 50 ML IV ONE (13:00)
[2021-04-08] MEDS ORDERED: PANT40TA49 PO (13:17)
[2021-04-08] MEDS ORDERED: LACT-58 PO (13:17)
[2021-04-08] MEDS ORDERED: CALC3.7S NS (13:17)
[2021-04-08] MEDS ORDERED: ACET325T53 PO (13:17)
[2021-04-08] MEDS ORDERED: FERR325T23 PO (13:17)
[2021-04-08] MEDS ORDERED: BISA10SU11 RC (13:17)
[2021-04-08] MEDS ORDERED: POLY17PO4 PO (13:17)
[2021-04-08] MEDS ORDERED: PROP10TA10 PO (13:17)
[2021-04-08] MEDS ORDERED: AMIN30LI2 PO (13:17)
[2021-04-08] MEDS ORDERED: CALC1TAB30 PO (13:17)
[2021-04-08] MEDS ORDERED: MAGN400O6 PO (13:17)
[2021-04-08] MEDS ORDERED: IBUP200C5 PO (13:17)
[2021-04-08] MEDS ORDERED: TRAM50TA2 PO (13:17)
[2021-04-08 13:19] LABS: BASOPHILS # (AUTO) 0.2 K/uL (0.0-0.2); BASOPHILS % (AUTO) 0.7 % (0.0-2.0); EOSINOPHILS % (AUTO) 0.8 % (0.0-6.0); HEMATOCRIT 29 % (33-45); LYMPHOCYTES # (AUTO) 0.8 K/uL (0.8-4.8); LYMPHOCYTES % (AUTO) 2.7 % (20.0-44.0); MEAN CORPUSCULAR HGB CONC 31 g/dl (31.0-36.0); MEAN CORPUSCULAR VOLUME 86 fL (82-100); MONOCYTES # (AUTO) 1.9 K/uL (0.1-1.30); MONOCYTES % (AUTO) 6.7 % (2.0-12.0); NEUTROPHILS % (AUTO) 89.1 % (43.0-81.0); PLATELET COUNT (AUTO) 246 K/uL (150-450); RED BLOOD CELL COUNT(AUTO) 3.33 MIL/uL (4.0-5.2); WHITE BLOOD COUNT (AUTO) 28.1 K/uL (4.3-11.0)
--- NOTE | 2021-04-08 13:30 | NUR ---
URINE COLLECTED AND SENT TO LAB
[2021-04-08 13:47] LABS: ALANINE AMINOTRANSFERASE 35 U/L (12-78); ALBUMIN 2.2 g/dL (3.4-5.0); ALKALINE PHOSPHATASE 140 U/L (46-116); ASPARTATE AMINOTRANSFERASE 22 U/L (15-37); BILIRUBIN,DIRECT 0.2 mg/dL (0.0-0.2); BILIRUBIN,TOTAL 0.5 mg/dL (0.2-1.0); CALCIUM, SERUM 9.7 mg/dL (8.5-10.1); CARBON DIOXIDE 20 mmol/L (21-32); CHLORIDE 103 mmol/L (98-107); CREATININE 2.4 mg/dL (0.6-1.3); GLUCOSE 140 mg/dL (74-106); POTASSIUM 4.2 mmol/L (3.5-5.1); SODIUM SERUM 136 mmol/L (136-145); TOTAL PROTEIN, SERUM 6.1 g/dL (6.4-8.2)
[2021-04-08 13:51] LABS: UREA NITROGEN, BLOOD 86 mg/dL (7-18)
[2021-04-08 14:10] LABS: BILIRUBIN,URINE NEGATIVE (NEGATIVE); COLOR,URINE YELLOW (YELLOW); PROTEIN,URINE 1+ mg/dl (NEGATIVE); UGLUCOSE NEGATIVE (NEGATIVE)
[2021-04-08 14:11] LABS: LEUKOCYTE ESTERASE ,URINE LARGE (NEGATIVE); NITRITE, URINE NEGATIVE (NEGATIVE); UROBILINOGEN,URINE 0.2 EU/dL (0.2)
[2021-04-08 14:19] LABS: BACTERIA,URINE Few /HPF (None Seen); SQUAMOUS EPITHELIAL CELL,UR Few /HPF (None Seen); WBC,URINE TOO NUMEROUS TO COUN /HPF (0-3)
[2021-04-08] MEDS ORDERED: IV NS 0.9% 1,000 ML IV ONE (15:30)
--- NOTE | 2021-04-08 15:30 | NUR ---
CALLED NURSING SUP FOR TELE BED
[2021-04-08 16:12] LABS: BAND % (MANUAL) 12 % (0.0-5.0); LYMPHOCYTES % (MANUAL) 12 % (16-48); MONOCYTES % (MANUAL) 2 % (0-11.0); NEUTROPHILS % (MANUAL) 74 (42-76)
--- NOTE | 2021-04-08 16:30 | NUR ---
COVID PCR SWAB DONE AND SENT TO LAB
[2021-04-08] MEDS: POLYETHYLENE GLYCOL 3350 17 GM POWD.PACK PO SCH (17:00)
[2021-04-08] MEDS ORDERED: BISACODYL SUPP (10 MG) 10 MG/SUPP.RECT SUPP.RECT RC PRN (17:00)
--- NOTE | 2021-04-08 18:22 | NUR ---
PT WILL BE GOING TO 117-2 PER RN HEAVY MOBILE EQUIPMENT REPAIRER.
--- NOTE | 2021-04-08 18:31 | NUR ---
REPORT GIVEN TO NEEL ARTHUR FOR ROSETTA
--- NOTE | 2021-04-08 18:40 | NUR ---
received pt. from er via [email or web address] paged for admitting orders.
--- NOTE | 2021-04-08 18:42 | NUR ---
will endorse to casino shift manager for continuity of care.
[2021-04-08] MEDS ORDERED: IV NS 0.9% 1,000 ML IV PRN (19:00)
[2021-04-08] MEDS ORDERED: ACETAMINOPHEN 325 MG TABLET PO PRN (19:00)
[2021-04-08] MEDS ORDERED: Z GUARD REMEDY 2 OZ OINT TP PRN (19:00)
[2021-04-08] MEDS ORDERED: ONDANSETRON HCL/PF 4 MG/2 ML VIAL IVP PRN (19:00)
--- NOTE | 2021-04-08 19:15 | NUR ---
RN NOTE PT RECEIVED IN BED. PT IS ON 3L OF 02 VIA NC SHOWING NO S/S OF RESP DISTRESS. PT IS CURRENTLY A/OX2. SKIN INTACT. PT IS ON TELE MONITOR SHOWING NSR. PT HAS IV LINE ON RIGHT FA GAUGE 22 AND LEFT AC GAUGE 20. IV LINE FLUSHED, PATENT, AND INTACT. NO S/S OF INFILTRATION. ALL SAFETY MEASURES IMPLEMENTED. CALL LIGHT WITHIN REACH. BED ALARM ON. BED LOCKED AND IN LOWEST POSITION. WILL CONTINUE TO MONITOR THROUGHOUT THE SHIFT.
--- NOTE | 2021-04-08 19:25 | NUR ---
RN NOTE PT HAS A FEVER OF 102.6. WILL ADMINISTER TYLENOL PRN ORDERED AND PROVIDE COOLING MEASURES. WILL RE-ASSESS PATIENT IN 45 MINUTES.
[2021-04-08] MEDS: IPRATROPIUM NEB FS 0.5 MG/2.5 ML AMPUL.NEB NEB SCH (19:30)
[2021-04-08] MEDS: ALBUTEROL FS 2.5 MG/0.5 ML VIAL.NEB NEB SCH (19:30)
[2021-04-08] MEDS ORDERED: VANCOMYCIN 1 GM VIAL ONE (19:49)
[2021-04-08] MEDS: VANCOMYCIN 1 GM in IV D5W 250ml IV SCH (19:53)
--- NOTE | 2021-04-08 20:20 | NUR ---
RN NOTE PT TEMPERATURE NOW 98.4. WILL CONTINUE TO ASSESS AND MONITOR THROUGHOUT THE SHIFT.
[2021-04-08 20:55] VITALS: BP 85/45
--- NOTE | 2021-04-08 21:30 | NUR ---
RN NOTE PT BLOOD PRESSURE WAS IN THE LOW 80s/40s. SPOKE WITH DR. HORNE ABOUT PTs LOW BP. CHANGED 0.9% NS 1000ML ORDER FROM 75 ML/HR TO 150 ML/HR. WILL RE-ASSESS PT'S BP IN AN HOUR.
[2021-04-08] MEDS: ENOXAPARIN SODIUM 30 MG/0.3 ML DISP.SYRIN SQ SCH (21:43)
[2021-04-08] MEDS: PIPERACILLIN /TAZOBACTAM 2.25 G in IV D5W 50 ML IV SCH (21:44)
[2021-04-08 22:00] VITALS: BP 94/54
[2021-04-08] MEDS: IV NS 0.9% 1,000 ML IV PRN (22:14)
--- NOTE | 2021-04-08 22:35 | NUR ---
RN NOTE PT'S SYSTOLIC BP IS NOW IN 100s. VSS. WILL CONTINUE TO MONITOR AND ASSESS THE PATIENT THROUGHOUT THE SHIFT.
[2021-04-09] VITALS: BP 107/40
[2021-04-09] MEDS: IV NS 0.9% 1,000 ML IV PRN ×3 (01:52→19:26)
[2021-04-09] MEDS: TRAMADOL HCL 50 MG TABLET PO PRN (02:29)
[2021-04-09 04:00] VITALS: BP 135/42
[2021-04-09] MEDS: PIPERACILLIN /TAZOBACTAM 2.25 G in IV D5W 50 ML IV SCH ×3 (06:04→18:03)
[2021-04-09 06:14] LABS: BASOPHILS # (AUTO) 0.1 K/uL (0.0-0.2); BASOPHILS % (AUTO) 0.2 % (0.0-2.0); EOSINOPHILS % (AUTO) 0.1 % (0.0-6.0); HEMATOCRIT 27 % (33-45); HEMOGLOBIN 8.4 g/dL (11.5-14.8); LYMPHOCYTES # (AUTO) 0.7 K/uL (0.8-4.8); LYMPHOCYTES % (AUTO) 2.4 % (20.0-44.0); MEAN CORPUSCULAR HGB CONC 31 g/dl (31.0-36.0); MEAN CORPUSCULAR VOLUME 86 fL (82-100); MONOCYTES # (AUTO) 2.2 K/uL (0.1-1.30); MONOCYTES % (AUTO) 7.9 % (2.0-12.0); NEUTROPHILS # (AUTO) 24.9 K/uL (1.8-8.9); NEUTROPHILS % (AUTO) 89.4 % (43.0-81.0); PLATELET COUNT (AUTO) 283 K/uL (150-450); RED BLOOD CELL COUNT(AUTO) 3.12 MIL/uL (4.0-5.2); WHITE BLOOD COUNT (AUTO) 27.9 K/uL (4.3-11.0)
--- NOTE | 2021-04-09 06:49 | NUR ---
PT IN BED SLEEPING. PT IS ON 3L OF O2 VIA NC SHOWING NO S/S OF RESP DISTRESS. PT IS A/OX2-3. PT IS ON TELE MONITOR SHOWING NSR. IV LINE ON RIGHT FORE ARM GAUGE 22 AND LEFT AC GAUGE 20 NOTED. PT KEPT CLEAN AND COMFORTABLE. ALL DUE MEDS GIVEN ORDERED. ALL SAFETY MEASURES IMPLEMENTED. CALL LIGHT WITHIN REACH. BED ALARM ON. BED LOCKED AND IN LOWEST POSITION. WILL ENDORSE TO MORNING SHIFT RN FOR ROSETTA.
[2021-04-09 06:52] LABS: CHOLESTEROL 120 mg/dL (<200); HDL CHOLESTEROL 35 mg/dL (40-60); LDL 68 mg/dL (0-99); TRIGLYCERIDES 80 mg/dL (30-150)
[2021-04-09 06:54] LABS: CALCIUM, SERUM 9.1 mg/dL (8.5-10.1); CARBON DIOXIDE 15 mmol/L (21-32); CHLORIDE 106 mmol/L (98-107); CREATININE 2.3 mg/dL (0.6-1.3); GLUCOSE 146 mg/dL (74-106); POTASSIUM 4.2 mmol/L (3.5-5.1); SODIUM SERUM 136 mmol/L (136-145); UREA NITROGEN, BLOOD 76 mg/dL (7-18)
--- NOTE | 2021-04-09 07:05 | NUR ---
RN OPENING NOTES RECEIVED PT IN BED, A/O X2-3. ON 3L O2 VIA NC, SATURATING @98%. NO SOB OR ANY S/S OF RESPIRATORY DISTRESS NOTED. ON TELE MONITOR SHOWING SR. IV ACCESS ON RFA #22 AND LAC #20 BOTH INTACT, PATENT AND FLUSHED. SAFETY MEASURES IMPLEMENTED. CALL LIGHT WITHIN REACH. BED ALARM ON. BED LOCKED AND IN LOWEST POSITION WITH SIDE RAILS UP X3. WILL CONTINUE TO MONITOR.
[2021-04-09] MEDS: ALBUTEROL FS 2.5 MG/0.5 ML VIAL.NEB NEB SCH ×4 (07:35→19:30)
[2021-04-09] MEDS: IPRATROPIUM NEB FS 0.5 MG/2.5 ML AMPUL.NEB NEB SCH ×4 (07:35→19:30)
[2021-04-09] MEDS: THIAMINE HCL 100 MG TABLET PO SCH (08:28)
[2021-04-09] MEDS: FERROUS SULFATE (325 MG) 325 MG/TAB TABLET PO SCH (08:28)
[2021-04-09] MEDS: CHOLECALCIFEROL 1,000 UNIT TABLET (VIT D3) PO SCH (08:28)
[2021-04-09] MEDS: PANTOPRAZOLE 40 MG TABLET.DR PO SCH (08:28)
[2021-04-09] MEDS: POLYETHYLENE GLYCOL 3350 17 GM POWD.PACK PO SCH ×2 (08:28→16:59)
[2021-04-09] MEDS: CALCITONIN,SALMON,SYNTHETIC 3.7 ML SPRAY.PUMP NS SCH (08:31)
[2021-04-09 08:32] LABS: BAND % (MANUAL) 3 % (0.0-5.0); LYMPHOCYTES % (MANUAL) 4 % (16-48); MONOCYTES % (MANUAL) 7 % (0-11.0); NEUTROPHILS % (MANUAL) 86 (42-76)
[2021-04-09] MEDS: PROPRANOLOL HCL 10 MG TABLET PO SCH ×4 (08:56→21:00)
[2021-04-09] MEDS: ENSURE ENLIVE 237 ML LIQUID (VANILLA) PO SCH ×2 (08:56→18:03)
[2021-04-09] MEDS: PROSOURCE / PROSTAT (PYXIS) 30 ML UDC PO SCH ×3 (08:57→18:03)
[2021-04-09 09:16] VITALS: BP 99/43
[2021-04-09 12:00] VITALS: BP 100/45
--- NOTE | 2021-04-09 15:19 | NUR ---
explained to patient the importance of putting pace ,patient refused,md notified,will continue to monitor.
--- NOTE | 2021-04-09 15:58 | NUR ---
patient voided incontinent ,moderate urine output.
--- NOTE | 2021-04-09 15:58 | NUR ---
still refusing pace per patient "i am urinating".
[2021-04-09 16:00] VITALS: BP 127/46
--- NOTE | 2021-04-09 17:00 | NUR ---
RN NOTES INDERAL NOT GIVEN @0900, 1300 AND 1700 DUE TO LOW BP, AWARE
--- NOTE | 2021-04-09 18:51 | NUR ---
RN CLOSING NOTES NO SIGNIFICANT CHANGES THROUGHOUT THE SHIFT. NO SOB OR ANY DISTRESS NOTED. NO PAIN REPORTED AT THIS TIME. KEPT CLEAN AND COMFORTABLE. ALL DUE MEDS GIVEN. NEEDS ATTENDED. SAFETY MEASURES IN PLACE. WILL ENDORSE TO NIGHT RN FOR ROSETTA.
[2021-04-09 20:52] VITALS: BP 103/49
--- NOTE | 2021-04-09 21:20 | NUR ---
RN NOTES BP MED HELD DUE TO LOW SBP. WILL CONTINUE TO MONITOR.
[2021-04-09] MEDS: ENOXAPARIN SODIUM 30 MG/0.3 ML DISP.SYRIN SQ SCH (21:25)
[2021-04-09] MEDS ORDERED: MEROPENEM 500 MG in IV NS 0.9% 50 ML IV SCH (21:30)
[2021-04-09] MEDS ORDERED: MEROPENEM 500 MG VIAL IV ONE (21:45)
[2021-04-09] MEDS ORDERED: MEROPENEM 500 MG in IV NS 0.9% 50 ML IV ONE (22:00)
--- NOTE | 2021-04-09 22:48 | NUR ---
RN NOTES PT STILL REFUSING PLACEMENT OF STAPLETON CATHETER DESPITE RISK AND BENEFITS EXPLANATION X3 REFUSED X 3WILL TRY AGAIN LATER. PT STATED " I DON'T WAN THAT CATHETER I CAN PEE ON MY OWN I DON'T NEED IT SHITAL BEEN PEEING ON MY OWN ALL DAY I DON'T KNOW WHY YOU ALL KEEP INSISTING"
[2021-04-10] VITALS: BP 139/54
--- NOTE | 2021-04-10 02:53 | NUR ---
RN NOTES RECEIEVED CALL FROM LAB REGARDING FINAL BLOOD CULTURE RESULTS. MD MADE AWARE NO NEW ORDERS AT THIS TIME. ID MD MILLER SAW PT TONIGHT AND CHANGED ATX FROM [place]OS[place] TO [place]. WILL CONTINUE TO MONITOR. AND LET MORNING NURSE NORSE RESULTS TO ID DOCTOR IN THE AM.
[2021-04-10 04:38] VITALS: BP 124/58
--- NOTE | 2021-04-10 04:57 | NUR ---
RN NOTES PT LINEN CHANGED, DIAPE R CHANGED AND REPOSITIONED BY RN AND FLATBED STITCHER PT EXPRESSED FEELING PAIN RN OFFERED PAIN MEDICATION X 3 PT STATED SHE ONLY WANTED A BOX OF KLEENEX AND A DRINK OF WATER BOTH WERE PROVIDED. RN ATTEMPTED TO RE CONNECT PT TO FLUIDS PT STATED " PLEASE JUST LEAVE ME ALONE I DON'T WANT THAT" RISK AND BENEFITS EXPLAINED X3 PT STILL REFUSED. PT IS STILL REFUSING STAPLETON CATH PLACEMENT WELL X3 RISK AND BENEFITS EXPLAINED X 3.WILL CONTINUE TO MONITOR.
--- NOTE | 2021-04-10 06:49 | NUR ---
CLOSING NOTES PT IN BED, A/O X2-3. ON 2L O2 VIA NC, SATURATING @98%. NO SOB OR ANY S/S OF RESPIRATORY DISTRESS NOTED. ON TELE MONITOR SHOWING SR. IV ACCESS ON RFA #22 AND LAC #20 BOTH INTACT, PATENT AND FLUSHED. SAFETY MEASURES IMPLEMENTED. CALL LIGHT WITHIN REACH. BED ALARM ON. BED LOCKED AND IN LOWEST POSITION WITH SIDE RAILS UP X3. WILL ENDORSE CARE TO DAY SHIFT NURSE.
[2021-04-10] MEDS: IPRATROPIUM NEB FS 0.5 MG/2.5 ML AMPUL.NEB NEB SCH ×3 (07:35→19:30)
[2021-04-10] MEDS: ALBUTEROL FS 2.5 MG/0.5 ML VIAL.NEB NEB SCH ×3 (07:35→19:30)
--- NOTE | 2021-04-10 07:38 | NUR ---
RN OPENING NOTES Pt is Awake, alert and oriented x 2, on 2 liters 02 via NC satting 95%, no respiratory distress, no SOB. Denies any pain or discomfort. Safety precautions implemented, bed locked in lowest position, call light within reach.
[2021-04-10 07:56] LABS: BASOPHILS # (AUTO) 0.1 K/uL (0.0-0.2); BASOPHILS % (AUTO) 0.4 % (0.0-2.0); EOSINOPHILS % (AUTO) 2.2 % (0.0-6.0); HEMATOCRIT 27 % (33-45); HEMOGLOBIN 8.7 g/dL (11.5-14.8); LYMPHOCYTES # (AUTO) 1.2 K/uL (0.8-4.8); LYMPHOCYTES % (AUTO) 5.7 % (20.0-44.0); MEAN CORPUSCULAR HGB CONC 32 g/dl (31.0-36.0); MEAN CORPUSCULAR VOLUME 85 fL (82-100); MONOCYTES # (AUTO) 1.6 K/uL (0.1-1.30); MONOCYTES % (AUTO) 7.4 % (2.0-12.0); NEUTROPHILS % (AUTO) 84.3 % (43.0-81.0); PLATELET COUNT (AUTO) 307 K/uL (150-450); RED BLOOD CELL COUNT(AUTO) 3.18 MIL/uL (4.0-5.2); WHITE BLOOD COUNT (AUTO) 21.3 K/uL (4.3-11.0)
[2021-04-10 08:00] VITALS: BP 131/56
[2021-04-10 08:13] LABS: CALCIUM, SERUM 9.3 mg/dL (8.5-10.1); CARBON DIOXIDE 17 mmol/L (21-32); CHLORIDE 106 mmol/L (98-107); CREATININE 1.8 mg/dL (0.6-1.3); GLUCOSE 108 mg/dL (74-106); POTASSIUM 3.8 mmol/L (3.5-5.1); SODIUM SERUM 136 mmol/L (136-145); UREA NITROGEN, BLOOD 66 mg/dL (7-18)
[2021-04-10] MEDS: MEROPENEM 500 MG in IV NS 0.9% 100 ML IV SCH ×2 (08:25→20:48)
[2021-04-10] MEDS: CHOLECALCIFEROL 1,000 UNIT TABLET (VIT D3) PO SCH (08:25)
[2021-04-10] MEDS: FERROUS SULFATE (325 MG) 325 MG/TAB TABLET PO SCH (08:26)
[2021-04-10] MEDS: THIAMINE HCL 100 MG TABLET PO SCH (08:26)
[2021-04-10] MEDS: POLYETHYLENE GLYCOL 3350 17 GM POWD.PACK PO SCH ×2 (08:26→16:04)
[2021-04-10] MEDS: PROPRANOLOL HCL 10 MG TABLET PO SCH ×4 (08:27→20:53)
[2021-04-10] MEDS: PANTOPRAZOLE 40 MG TABLET.DR PO SCH (08:27)
[2021-04-10] MEDS: ENSURE ENLIVE 237 ML LIQUID (VANILLA) PO SCH ×2 (08:28→16:04)
[2021-04-10] MEDS: PROSOURCE / PROSTAT (PYXIS) 30 ML UDC PO SCH ×3 (08:28→16:04)
[2021-04-10] MEDS: CALCITONIN,SALMON,SYNTHETIC 3.7 ML SPRAY.PUMP NS SCH (08:30)
[2021-04-10] MEDS: VANCOMYCIN 1 GM in IV D5W 250ml IV SCH (10:03)
[2021-04-10] MEDS ORDERED: IV NS 0.9% 1,000 ML IV SCH (10:30)
[2021-04-10 12:00] VITALS: BP 115/50
--- NOTE | 2021-04-10 13:39 | NUR ---
RN NOTE Bladder scan ordered by [id number]. Papazian notified waiting for call back. Dr. Lin in house gave order to insert F/C. Dr. Paredes Nephro replied gave order to just monitor for now, Dr. Lin in house Ok with recommendation.
[2021-04-10 16:00] VITALS: BP 101/41
--- NOTE | 2021-04-10 18:35 | NUR ---
RN CLOSING NOTES Pt is A/O X 4 on 2 liters 02 via NC, no respiratory distress, no SOB. Denies any distress, pain. Left AC/RFA IV site clean with no s/sx of infiltration. Ongoing hydration 100cc/hr. AM/PM care rendered, repositioned accordingly. Safety precautions implemented bed locked in lowest position, call light within reach.
--- NOTE | 2021-04-10 19:30 | NUR ---
RN NOTE RECEIVED PATIENT ON ISOLATION FOR COVID. A/OX3 WITH PERIODS OF FORGETFULNESS. ON OXYGEN 2L/MIN VIA NASAL CANNULA. RESPIRATIONS ARE EVEN AND UNLABORED. NO S/S SOB NOTED. NO C/O PAIN AT THIS TIME. EXTERNAL TELE MONITOR READS SINUS RHYTHM. IN NO APPARENT DISTRESS. IV ACCESS IN LAC#20, RFA#22 RUNNING NS#100ML/HR. BED IS LOW AND LOCKED, HOB ELEVATED IN SEMI FOWLERS, SIDE RAILS UP X3, CALL LIGHT WITHIN REACH. WILL CONTINUE TO MONITOR THROUGHOUT SHIFT.
[2021-04-10 20:00] VITALS: BP 120/73
[2021-04-10] MEDS: IV NS 0.9% 1,000 ML IV PRN (20:48)
[2021-04-10] MEDS: ENOXAPARIN SODIUM 30 MG/0.3 ML DISP.SYRIN SQ SCH (20:55)
[2021-04-11] VITALS: BP 125/56
[2021-04-11 04:00] VITALS: BP 116/47
--- NOTE | 2021-04-11 05:21 | NUR ---
RT NOTE ATTEMPTED SPUTUM SAMPLE COLLECTION. PT STATES SHE COULD NOT COUGH OR PRODUCE SAMPLE AT THIS TIME. PT EDUCATED ON COLLECTING SAMPLE AND CONTAINER LEFT AT BEDSIDE. RN AWARE.
[2021-04-11 06:53] LABS: BASOPHILS # (AUTO) 0.1 K/uL (0.0-0.2); BASOPHILS % (AUTO) 0.7 % (0.0-2.0); EOSINOPHILS % (AUTO) 4.2 % (0.0-6.0); HEMATOCRIT 26 % (33-45); HEMOGLOBIN 8.3 g/dL (11.5-14.8); LYMPHOCYTES # (AUTO) 1.3 K/uL (0.8-4.8); LYMPHOCYTES % (AUTO) 8.5 % (20.0-44.0); MEAN CORPUSCULAR HGB CONC 33 g/dl (31.0-36.0); MEAN CORPUSCULAR VOLUME 85 fL (82-100); MONOCYTES # (AUTO) 1.1 K/uL (0.1-1.30); MONOCYTES % (AUTO) 7.1 % (2.0-12.0); NEUTROPHILS # (AUTO) 12.2 K/uL (1.8-8.9); NEUTROPHILS % (AUTO) 79.5 % (43.0-81.0); PLATELET COUNT (AUTO) 344 K/uL (150-450); WHITE BLOOD COUNT (AUTO) 15.4 K/uL (4.3-11.0)
--- NOTE | 2021-04-11 07:16 | NUR ---
RN NOTE ON COVID ISOLATION. A/OX3 WITH PERIODS OF FORGETFULNESS. REMAINS ON OXYGEN 2L/MIN VIA NASAL CANNULA. NO RESP DISTRESS. PAIN WHEN TURNING. TELE MONITOR READS SINUS RHYTHM. NO DISTRESS. IV ACCESS IN LFA#20 RUNNING NS@100ML/HR. BED REMAINS LOW AND LOCKED, HOB ELEVATED IN SEMI FOWLERS, SIDE RAILS UP X3, CALL LIGHT WITHIN REACH. WILL ENDORSE TO ONCOMING SHIFT.
--- NOTE | 2021-04-11 07:33 | NUR ---
RN OPENING NOTE Pt is Asleep arousable to stimuli, on 2 liters via NC, no respiratory distress, no SOB. On contact/droplet precautions for pending PCR Covid, - rapid results. Ongoing hydration 100cc on left hand with no s/sx of infiltration. Safety precautions implemented, bed locked in lowest position, call light within reach.
[2021-04-11] MEDS: ALBUTEROL FS 2.5 MG/0.5 ML VIAL.NEB NEB SCH ×4 (07:35→20:42)
[2021-04-11] MEDS: IPRATROPIUM NEB FS 0.5 MG/2.5 ML AMPUL.NEB NEB SCH ×4 (07:35→20:42)
[2021-04-11 07:36] LABS: CALCIUM, SERUM 9.4 mg/dL (8.5-10.1); CARBON DIOXIDE 17 mmol/L (21-32); CHLORIDE 112 mmol/L (98-107); CREATININE 1.4 mg/dL (0.6-1.3); GLUCOSE 95 mg/dL (74-106); POTASSIUM 3.9 mmol/L (3.5-5.1); SODIUM SERUM 142 mmol/L (136-145); UREA NITROGEN, BLOOD 53 mg/dL (7-18)
[2021-04-11 08:00] VITALS: BP 113/53
[2021-04-11] MEDS: CHOLECALCIFEROL 1,000 UNIT TABLET (VIT D3) PO SCH (08:35)
[2021-04-11] MEDS: POLYETHYLENE GLYCOL 3350 17 GM POWD.PACK PO SCH ×2 (08:35→16:31)
[2021-04-11] MEDS: FERROUS SULFATE (325 MG) 325 MG/TAB TABLET PO SCH (08:36)
[2021-04-11] MEDS: PROPRANOLOL HCL 10 MG TABLET PO SCH ×4 (08:36→21:48)
[2021-04-11] MEDS: THIAMINE HCL 100 MG TABLET PO SCH (08:37)
[2021-04-11] MEDS: PROSOURCE / PROSTAT (PYXIS) 30 ML UDC PO SCH ×3 (08:37→16:25)
[2021-04-11] MEDS: VANCOMYCIN 1 GM in IV D5W 250ml IV SCH (08:38)
[2021-04-11] MEDS: CALCITONIN,SALMON,SYNTHETIC 3.7 ML SPRAY.PUMP NS SCH (08:40)
[2021-04-11] MEDS: PANTOPRAZOLE 40 MG TABLET.DR PO SCH (08:40)
[2021-04-11] MEDS: ENSURE ENLIVE 237 ML LIQUID (VANILLA) PO SCH ×2 (09:01→16:24)
[2021-04-11] MEDS: MEROPENEM 500 MG in IV NS 0.9% 100 ML IV SCH ×2 (09:57→21:46)
[2021-04-11 12:00] VITALS: BP 106/33
[2021-04-11 16:00] VITALS: BP 169/40
--- NOTE | 2021-04-11 17:54 | NUR ---
RN NOTE No productive cough noted, no sputum sample collected, per MD D/C collection. Patient will be D/C back to SNF per family request.
--- NOTE | 2021-04-11 18:55 | NUR ---
RN CLOSING NOTES Pt is A/O X4 with periods of forgetfulness, on room air satting at 93%, no respiratory distress, no SOB. LFA IV site clean intact with no s/sx of infiltration. Ongoing NS @100cc/hr. Incontinent of B/B. Safety precautions implemented, bed locked in lowest position, call light within reach. Spoke with daughter Nevaeh, she is requesting D/C back to SNF-Dr. Lin aware, will plan for possible D/C in AM. Daughter aware.
[2021-04-11 20:00] VITALS: BP 125/38
--- NOTE | 2021-04-11 20:00 | NUR ---
RN NOTE RECEIVED PATIENT IN BED. A/OX3 WITH PERIODS OF FORGETFULNESS. TOLERATING ROOM AIR. RESPIRATIONS ARE EVEN AND UNLABORED. NO S/S SOB NOTED. NO C/O PAIN AT THIS TIME. EXTERNAL TELE MONITOR READS SINUS RHYTHM. IN NO APPARENT DISTRESS. IV ACCESS IN LFA#20 RUNNING NS@100ML/HR. BED IS LOW AND LOCKED, HOB ELEVATED IN SEMI FOWLERS, SIDE RAILS UP X3, CALL LIGHT WITHIN REACH. WILL CONTINUE TO MONITOR THROUGHOUT SHIFT.
[2021-04-11] MEDS: IV NS 0.9% 1,000 ML IV PRN (21:46)
[2021-04-11] MEDS: ENOXAPARIN SODIUM 30 MG/0.3 ML DISP.SYRIN SQ SCH (21:53)
[2021-04-12] VITALS: BP 133/47
[2021-04-12] MEDS: TRAMADOL HCL 50 MG TABLET PO PRN (00:58)
[2021-04-12 04:00] VITALS: BP 137/53
[2021-04-12 06:47] LABS: BASOPHILS # (AUTO) 0.1 K/uL (0.0-0.2); BASOPHILS % (AUTO) 0.8 % (0.0-2.0); HEMATOCRIT 23 % (33-45); HEMOGLOBIN 7.4 g/dL (11.5-14.8); LYMPHOCYTES # (AUTO) 1.4 K/uL (0.8-4.8); LYMPHOCYTES % (AUTO) 12.5 % (20.0-44.0); MEAN CORPUSCULAR HGB CONC 32 g/dl (31.0-36.0); MEAN CORPUSCULAR VOLUME 84 fL (82-100); NEUTROPHILS # (AUTO) 8.4 K/uL (1.8-8.9); NEUTROPHILS % (AUTO) 73.7 % (43.0-81.0); PLATELET COUNT (AUTO) 362 K/uL (150-450); RED BLOOD CELL COUNT(AUTO) 2.75 MIL/uL (4.0-5.2); WHITE BLOOD COUNT (AUTO) 11.4 K/uL (4.3-11.0)
[2021-04-12 06:54] LABS: CALCIUM, SERUM 9.3 mg/dL (8.5-10.1); CREATININE 1.1 mg/dL (0.6-1.3); POTASSIUM 3.8 mmol/L (3.5-5.1)
--- NOTE | 2021-04-12 07:27 | NUR ---
RN NOTE . A/OX3 WITH PERIODS OF FORGETFULNESS. REMAINS ON OXYGEN 2L/MIN VIA NASAL CANNULA. NO RESP DISTRESS. PAIN WHEN TURNING. TELE MONITOR READS SINUS RHYTHM. NO DISTRESS. IV ACCESS IN LFA#20 RUNNING NS@100ML/HR. BED REMAINS LOW AND LOCKED, HOB ELEVATED IN SEMI FOWLERS, SIDE RAILS UP X3, CALL LIGHT WITHIN REACH. WILL ENDORSE TO ONCOMING SHIFT. Addendum: 04/12/21 at 0729 by MARCE ISAAC RN patient remains on room air. no alvaro distress. pain maanged with toradol. sinus rhtyhm. no distress. lfa#20 running ns@100.
[2021-04-12] MEDS: ALBUTEROL FS 2.5 MG/0.5 ML VIAL.NEB NEB SCH ×3 (07:35→15:30)
[2021-04-12] MEDS: IPRATROPIUM NEB FS 0.5 MG/2.5 ML AMPUL.NEB NEB SCH ×3 (07:35→15:30)
--- NOTE | 2021-04-12 07:43 | NUR ---
pt. is awake and follow commands received on room air with 95% saturation. no SOB noted. Addendum: 04/12/21 at 0745 by MISBAH GONZALEZ RT Amended: Links added.
--- NOTE | 2021-04-12 07:52 | NUR ---
RN OPENING NOTE Pt is Asleep arousable to stimuli, no respiratory distress, no SOB. Left FA IV site with no s/sx of infiltration, Ongoing IV NS 100cc/hr. Safety precautions implemented, bed locked in lowest position, call light within reach.
[2021-04-12] MEDS: VANCOMYCIN 1 GM in IV D5W 250ml IV SCH (08:15)
[2021-04-12] MEDS: PROSOURCE / PROSTAT (PYXIS) 30 ML UDC PO SCH ×2 (08:16→13:09)
[2021-04-12] MEDS: POLYETHYLENE GLYCOL 3350 17 GM POWD.PACK PO SCH (08:16)
[2021-04-12] MEDS: CHOLECALCIFEROL 1,000 UNIT TABLET (VIT D3) PO SCH (08:17)
[2021-04-12] MEDS: THIAMINE HCL 100 MG TABLET PO SCH (08:17)
[2021-04-12] MEDS: FERROUS SULFATE (325 MG) 325 MG/TAB TABLET PO SCH (08:18)
[2021-04-12] MEDS: PANTOPRAZOLE 40 MG TABLET.DR PO SCH (08:18)
[2021-04-12] MEDS: ENSURE ENLIVE 237 ML LIQUID (VANILLA) PO SCH (08:18)
[2021-04-12] MEDS: CALCITONIN,SALMON,SYNTHETIC 3.7 ML SPRAY.PUMP NS SCH (08:19)
[2021-04-12] MEDS: PROPRANOLOL HCL 10 MG TABLET PO SCH ×2 (08:28→13:09)
[2021-04-12] MEDS: MEROPENEM 500 MG in IV NS 0.9% 100 ML IV SCH (09:58)
[2021-04-12 11:29] VITALS: BP 130/57
[2021-04-12 12:00] VITALS: BP 148/65
[2021-04-12] MEDS ORDERED: MERO500P IV (13:50)
[2021-04-12 16:00] VITALS: BP 134/59
--- NOTE | 2021-04-12 17:26 | NUR ---
DISCHARGE NOTE Pt is A/OX 4, D/C back to SN[facility], picked up by EMT via [facility] aware c/o led[facility]. Pertinent info sent with EMT. Patient has IV line on Left FA patent, intact, will continue IV Abx x 10 more days. Left in stable condition. Called daughter lola glez busy, called Son GUCCI left voicemail. Per patient she notified his son of D/C already.
[2021-04-13] MEDS ORDERED: VANCOMYCIN 1 GM in IV D5W 250ml IV SCH (02:00)
== END 2021-04-12 17:14 | DRG 871 ==
LOC: ER 12:19 → TELE1 18:29 → MEDSG1 04-12 07:53
PROVIDERS: ADMIT Nurse Practitioner Acute Care; ATTEND Nurse Practitioner Acute Care
DX: A41.89 Other specified sepsis (principal); G93.41 Metabolic encephalopathy; J69.0 Pneumonitis due to inhalation of food and vomit; N17.0 Acute kidney failure with tubular necrosis; E87.2 Acidosis; N39.0 Urinary tract infection, site not specified; E78.5 Hyperlipidemia, unspecified; D63.8 Anemia in other chronic diseases classified elsewhere; I12.9 Hypertensive chronic kidney disease with stage 1 through stage 4 chronic kidney disease, or unspecified chronic kidney disease; K21.9 Gastro-esophageal reflux disease without esophagitis; N18.9 Chronic kidney disease, unspecified; Z20.822 Contact with and (suspected) exposure to COVID-19; Z79.899 Other long term (current) drug therapy; Z91.81 History of falling; Z87.81 Personal history of (healed) traumatic fracture; Z98.890 Other specified postprocedural states; Z90.11 Acquired absence of right breast and nipple; B96.89 Other specified bacterial agents as the cause of diseases classified elsewhere; B96.20 Unspecified Escherichia coli [E. coli] as the cause of diseases classified elsewhere; N13.9 Obstructive and reflux uropathy, unspecified; R33.9 Retention of urine, unspecified
CPT/HCPCS: 36415; 71045-TC; 76770-TC; 80048-TC; 80061-TC; 80076-TC; 80202-TC; 81001; 83605-TC; 84100-TC; 84484-TC; 85025-TC; 85730-TC; 87040-TC; 87081-TC; 87086-TC; 87186-TC; 94799-TC; C9803; G0378; J0456; J0696; J1650; J2185; J2543; J3370; J7030; J7050; J7060; U0003